=== PATIENT | female | born 1945 | race Caucasian/White ===

== ENCOUNTER 2023-10-09 06:33 | Observation (INO) | payer OTHER ==
[2023-10-09 07:44] LABS: Absolute Lymphocytes (CBC) 3.1 K/uL (0.7-4.9); Hematocrit 40.2 % (36.0-45.0); Lymphocytes % 20.5 % (15.3-44.8); MCV 90.4 fL (80-100); MPV 8.6 fL (7.6-11.3); Platelets 322 thou/uL (152-406); RBC Red Blood Cell Count 4.45 M/uL (3.86-4.86)
[2023-10-09 07:45] LABS: Albumin 2.7 g/dL (3.4-5.0); Bilirubin Total 0.7 mg/dL (0.2-1.0); Protein, Total 6.9 g/dL (6.4-8.2)
[2023-10-09 07:46] LABS: Potassium 3.5 mEq/L (3.5-5.1)
[2023-10-09 07:53] LABS: Specific Gravity 1.029 (1.005-1.030); Urine Bacteria None Seen /HPF (<20); Urine Bilirubin NEGATIVE (Negative); Urine Blood Negative (Negative); Urine Clarity Extremely Turbid (Clear); Urine Color Yellow (Yellow); Urine Glucose 4+ (Over) (Negative); Urine Mucus 3+ /HPF (None Seen); Urine Protein 3+ (Negative); Urine RBC <5 /HPF (None Seen); Urine Urobilinogen Normal (Normal)
--- NOTE | 2023-10-09 08:35 | RAD REPORT ---
EXAM DESCRIPTION: CT - Abdomen Pelvis W Contrast - 10/09/2023 8:06 am CLINICAL HISTORY: recent diverticulitis;Abd pain COMPARISON: No comparisons TECHNIQUE: Thin cut axial CT imaging of the abdomen and pelvis was performed following intravenous a dministration of 100 mL Isovue 300. Multiplanar reformats were generated and reviewed. All CT scans are performed using dose optimization technique as appropriate and may include automated exposure control or mA/KV adjustment according to patient size. FINDINGS: No suspicious findings in the lung bases. The liver demonstrates a hypoattenuating 1.9 cm right lobe lesion posteriorly, not well characterized , but statistically favors a benign entity such as a cyst or hemangioma. No other suspicious findings of the liver. Spleen, adrenal glands, and pancreas show no suspicious findings. Gallbladder was surg ically removed. Symmetric renal function is seen with no hydronephrosis or suspicious renal mass. Bilateral small cor tical hypoattenuating lesions, largest at the left interpolar region measuring 2.5 cm, suggestive of cysts, although not well characterized. Appearance of persistent lobulation. Suture line at the base of the cecum, may relate to partial resection. No dilated bowel loops. Segmen pauline wall thickening and adjacent fat stranding involving the sigmoid colon, centered upon the left la teral wall diverticulum. Other mild colonic diverticulosis. No free air, free fluid or inflammatory s tranding. No hernia, mass or bulky lymphadenopathy. [place] region of soft tissue density along the le ft pelvic sidewall may relate to a residual ovary. Status post hysterectomy. The urinary bladder is d ecompressed limiting evaluation. The inflamed segment with column abuts the dome of the bladder with some obliteration of the intervening fat plane overload or arteries suggest a fistula or adjacent flu id collection. No suspicious bony findings. IMPRESSION: Sequelae of early acute diverticulitis of the proximal sigmoid colon. The inflamed segme nt of the colon abuts the dome of the bladder, please correlate clinically for evidence of cystitis, although the bladder is suboptimally distended. No other evidence of complications. Other incidental, likely benign findings, as above. The findings were communicated to Bj Hernandez on 10/09/2023 at 08:24 hours.
[2023-10-09] MEDS ORDERED: NA CHLORIDE 0.9% 250 ML ONE (09:10)
[2023-10-09] MEDS ORDERED: PIPERACIL/TAZO 3.375 GM VIAL IV ONE (09:10)
--- NOTE | 2023-10-09 09:16 | ER ---
Nurse's Notes [facility] Name: Yuliya Kaplan Age: 78 yrs Sex: Female : 1945 Arrival Date: 10/09/2023 Time: 06:33 Bed 5 Private MD: Diagnosis: Diverticulitis of small intestine without perforation or abscess without bleeding;Failure of outpatient therapy Presentation: 10/09 07:09 Chief complaint: Patient states: Abd. pain with URIBE for 1 week. Ebola Screen: Patient ll1 denies travel to an Ebola-affected area in the 21 days before illness onset. Initial Sepsis Screen: Does the patient meet any 2 criteria? No. Patient's initial sepsis screen is negative. Does the patient have a suspected source of infection? Yes: Acute abdominal pain. Risk Assessment: Do you want to hurt yourself or someone else? Patient reports no desire to harm self or others. 07:09 Acuity: CINDY 3 ll1 07:11 Coronavirus screen: Client denies travel out of the [place] in the last 14 days. At this ll1 time, the client does not indicate any symptoms associated with coronavirus-19. Onset of symptoms was October 03, 2023. 07:11 Method Of Arrival: Ambulatory ll1 Triage Assessment: 07:09 General: Appears uncomfortable, Behavior is calm, cooperative, appropriate for age. ll1 Pain: Complains of pain in abdomen Quality of pain is described as aching, crampy. Neuro: Reports headache. GI: Reports lower abdominal pain, upper abdominal pain, cramping. Historical: - Allergies: 07:12 No Known Allergies; ll1 - PMHx: 07:09 Diabetes - NIDDM; Hypertension; neuropathy; Pneumonia; ll1 - PSHx: 07:12 Appendectomy; Cholecystectomy; partial hysterectomy; ll1 - Immunization history:: Adult Immunizations up to date. - Social history:: Smoking status: Patient denies any tobacco usage or history of. - Family history:: not pertinent. - Hospitalizations: : No recent hospitalization is reported. Screenin:20 [facility] ED Fall Risk Assessment (Adult) History of falling in the last 3 months, ko1 including since admission No falls in past 3 months (0 pts) Confusion or Disorientation No (0 pts) Intoxicated or Sedated No (0 pts) Impaired Gait Yes (1 pt) Mobility Assist Device Used Yes (1 pt) Altered Elimination No (0 pt) Score/Fall Risk Level 0 - 2 = Low Risk Oriented to surroundings, Maintained a safe environment, Educated pt \T\ family on fall prevention, incl call for assistance when getting out of bed, Assessed \T\ reinforced patient's understanding of fall precautions, Provided non-skid footwear, Hourly rounding (assess needs \T\ fall precautionary measures) done, Used ambulatory aids as needed (educated on \T\ assisted with). Abuse screen: Denies threats or abuse. Denies injuries from another. Nutritional screening: No deficits noted. Tuberculosis screening: No symptoms or risk factors identified. Assessment: 08:52 Reassessment: No changes from previously documented assessment. Patient and/or family ll1 updated on plan of care and expected duration. Pain level reassessed. Patient is alert, oriented x 3, equal unlabored respirations, skin warm/dry/pink. 09:28 Pain: Complains of pain in headache. ko1 09:30 General: Appears in no apparent distress. comfortable, Behavior is calm, cooperative, eh3 appropriate for age. Pain: Complains of pain in head and abdomen. Neuro: Level of Consciousness is awake, alert, obeys commands, Oriented to person, place, time, situation. Cardiovascular: Capillary refill < 3 seconds Patient's skin is warm and dry. Respiratory: Airway is patent Trachea Respiratory effort is even, unlabored, Respiratory pattern is regular, symmetrical. GI: Abdomen is round. Derm: Skin is pink, warm \T\ dry. Musculoskeletal: Circulation, motion, and sensation intact. 10:00 Reassessment: Patient appears in no apparent distress at this time. Patient and/or eh3 family updated on plan of care and expected duration. Pain level reassessed. Patient is alert, oriented x 3, equal unlabored respirations, skin warm/dry/pink. 11:00 Reassessment: Patient appears in no apparent distress at this time. Patient and/or eh3 family updated on plan of care and expected duration. Pain level reassessed. Patient is alert, oriented x 3, equal unlabored respirations, skin warm/dry/pink. 18:03 Reassessment: Failed attempt to call report to 2nd floor, nurse did not answer phone. ll1 Vital Signs: 07:11 BP 181 / 84; Pulse 79; Resp 18; Temp 97.6; Pulse Ox 95% ; Weight 92.99 kg; Height 5 ft. ll1 7 in. ; 09:20 BP 168 / 95; Pulse 84; Resp 16; Pulse Ox 98% ; ko1 10:00 BP 162 / 66; Pulse 61; Resp 16; Pulse Ox 98% on R/A; eh3 11:00 BP 151 / 70; Pulse 71; Resp 16; Pulse Ox 98% on R/A; eh3 07:11 Body Mass Index 32.11 (92.99 kg, 170.18 cm) ll1 ED Course: 06:38 Patient arrived in ED. gm2 06:58 Bj Hernandez MD is Attending Physician. rn 07:09 Arm band placed on. ll1 07:10 Triage completed. ll1 07:17 Inserted saline lock: 22 gauge in right wrist, using aseptic technique. Blood collected.kj1 07:35 Flu Sent. kj1 07:35 Initial lab(s) drawn, by me, sent to lab. kj1 08:08 CT Abd/Pelvis - IV Contrast Only In Process Unspecified. EDMS 08:51 Patient placed in an exam room, on a stretcher. ll1 08:54 Pat Cazares, RN is Primary Nurse. ko1 09:12 Dyllan Silva is Hospitalizing Provider. rn 09:28 Patient has correct armband on for positive identification. Bed in low position. Call ko1 light in reach. Side rails up X 1. Pulse ox on. NIBP on. Door closed. Noise minimized. Lights dimmed. Warm blanket given. 10:00 Provided Education on: use of call celeste. Pillow given. eh3 11:00 Diet: Patient given snack. jello, and water, tolerated well. eh3 12:30 No provider procedures requiring assistance completed. Patient admitted, IV remains in ph place. Administered Medications: 09:00 Drug: Piperacillin-Tazobactam IVPB 3.375 grams IVPB once over 60 mins; (mix in NS 100 ko1 mL) Route: IVPB; Infused Over: 60 mins; Site: right wrist; 10:00 Follow up: Response: No adverse reaction; IV Status: Completed infusion; IV Intake: eh3 100ml 09:17 Drug: morphine IVP or IV 2 mg IVP once over 4 mins Route: IVP; Infused Over: 4 mins; ko1 Site: right wrist; 10:00 Follow up: Response: No adverse reaction; Pain is decreased 3 09:17 Drug: Ondansetron IVP 4 mg IVP once; over 2 minutes Route: IVP; Site: right wrist; ko1 10:00 Follow up: Response: No adverse reaction; Nausea is decreased 3 09:30 Drug: NS 0.9% IV 500 ml IV at bolus once Route: IV; Rate: bolus; Site: left wrist; 3 10:30 Follow up: IV Status: Completed infusion; IV Intake: 500ml 3 Medication: 12:30 VIS not applicable for this client. ph Intake: 10:00 IV: 100ml; Total: 100ml. eh3 10:30 IV: 500ml; Total: 600ml. 3 Outcome: 09:15 Decision to Hospitalize by Provider. rn 12:30 Admitted to ER Hold. Please see [facility] for further documentation. ph 12:30 Condition: stable 12:30 Instructed on the need for admit, 19:15 Admitted to Med/surg accompanied by tech, via wheelchair, room 224, Report called to [facility] Sharyn 19:15 Condition: stable 19:15 Instructed on the need for admit, 19:16 Patient left the ED. [facility] Signatures: Dispatcher [employer] EDMS Bj Hernandez MD MD rn Hall, Patricia, RN RN Becca Miner [email or web address] Janet De La Garza RN RN [email or web address] Vielka Newberry RN RN 3 Pat Cazares RN RN ko1 Jessy Avery gm2 Corrections: (The following items were deleted from the chart) 07:12 07:09 Chief complaint: Patient states: Abd. pain with URIBE [place] [address] 08:52 08:40 Patient placed in an exam room, on a stretcher, [place] [address]
--- NOTE | 2023-10-09 09:16 | EDPHYS ---
Physician Documentation [facility] Name: Yuliya Kaplan Age: 78 yrs Sex: Female : 1945 Arrival Date: 10/09/2023 Time: 06:33 Bed 5 Private MD: ED Physician Bj Hernandez HPI: 10/09 07:20 This 78 yrs old Female presents to ER via Ambulatory with complaints of Headache, rn Abdominal Pain. 07:21 The patient presents with abdominal pain in the left lower quadrant. Onset: The rn symptoms/episode began/occurred 2 week(s) ago. The symptoms do not radiate. Associated signs and symptoms: Pertinent positives: constipation, Pertinent negatives: nausea and vomiting, blood in stools, fever, shortness of breath. Modifying factors: The symptoms are alleviated by nothing, the symptoms are aggravated by nothing. Severity of pain: At its worst the pain was mild in the emergency department the pain is unchanged. The patient has experienced a previous episode. The patient has been recently seen by a physician:. . 07:29 Patient and report left lower quadrant abdominal pain associated with rn constipation. They are from out of town and report diagnosis of diverticulitis 2 weeks ago, spent 1 night in the hospital but more for hypertension, sent home with Augmentin. Seen about a week later and diagnosed with a UTI, put on ciprofloxacin. Denies any fever or vomiting. Persistent abdominal pain that never went away. No worsening of symptoms. Has tried laxatives and stool softeners without alleviation of constipation. Historical: - Allergies: 07:12 No Known Allergies; ll1 - PMHx: 07:09 Diabetes - NIDDM; Hypertension; neuropathy; Pneumonia; ll1 - PSHx: 07:12 Appendectomy; Cholecystectomy; partial hysterectomy; ll1 - Immunization history:: Adult Immunizations up to date. - Social history:: Smoking status: Patient denies any tobacco usage or history of. - Family history:: not pertinent. - Hospitalizations: : No recent hospitalization is reported. ROS: 07:29 Constitutional: Negative for fever, chills, and weight loss, Eyes: Negative for injury, rn pain, redness, and discharge, Cardiovascular: Negative for chest pain, palpitations, and edema, Respiratory: Negative for shortness of breath, cough, wheezing, and pleuritic chest pain, Abdomen/GI: Positive for left lower quadrant abdominal pain and constipation MS/Extremity: Negative for injury and deformity, Skin: Negative for injury, rash, and discoloration, Neuro: Positive for headache, negative for focal weakness or numbness Exam: 07:29 Constitutional: This is a well developed, well nourished patient who is awake, alert, rn and in no acute distress. Ambulatory to room without assistance, uses walker Head/Face: Normocephalic, atraumatic. ENT: Dry mucous membranes Cardiovascular: Regular rate and rhythm. No pulse deficits. Respiratory: No increased work of breathing, no retractions or nasal flaring. Abdomen/GI: Soft, left lower quadrant tenderness. No distention. No rebound MS/ Extremity: Pulses equal, no cyanosis. Neuro: Awake and alert, GCS 15 Vital Signs: 07:11 BP 181 / 84; Pulse 79; Resp 18; Temp 97.6; Pulse Ox 95% ; Weight 92.99 kg; Height 5 ft. ll1 7 in. ; 09:20 BP 168 / 95; Pulse 84; Resp 16; Pulse Ox 98% ; ko1 10:00 BP 162 / 66; Pulse 61; Resp 16; Pulse Ox 98% on R/A; eh3 11:00 BP 151 / 70; Pulse 71; Resp 16; Pulse Ox 98% on R/A; eh3 07:11 Body Mass Index 32.11 (92.99 kg, 170.18 cm) ll1 MDM: 06:58 Patient medically screened. rn 09:07 Differential diagnosis: bowel obstruction, diverticulitis, non-specific abd pain, rn Ureterolithiasis, urinary tract infection. Differential diagnosis: Pyelonephritis. Data reviewed: vital signs, nurses notes, lab test result(s). Data reviewed: radiologic studies, CT scan, and as a result, I will admit patient. Consideration of Admission/Observation Patient was admitted/placed on observation. Escalation of care including admission/observation considered. I considered the following discharge prescriptions or medication management in the emergency department Medications were administered in the Emergency Department. See MAR. Care significantly affected by the following chronic conditions: Diabetes, Hypertension. Counseling: I had a detailed discussion with the patient and/or guardian regarding the historical points, exam findings, and any diagnostic results supporting the discharge/admit diagnosis, lab results, radiology results, the need for further work-up and treatment in the hospital. Response to treatment: the patient's symptoms have mildly improved after treatment, and as a result, I will admit patient. ED course: Patient with persistent acute diverticulitis, elevated WBC, stable vitals but failure of outpatient therapy, has now taken ciprofloxacin and Augmentin without resolution of infection and patient feels worse. Will admit to hospitalist service for further care and IV antibiotics.. 09:29 ED course: Administration requested transfer of patient due to hospital capacity and supervisor frame sample and pattern hold situation, patient and offered transfer, they declined, are renting locally and will be difficult for to get to . They understand the hold situation and request for transfer, they politely declined. Will keep patient here for IV antibiotics. 10/09 07:13 Order name: CBC with Diff; Complete Time: 08:24 rn 10/09 07:13 Order name: CMP; Complete Time: 08:24 rn 10/09 07:13 Order name: Lipase; Complete Time: 08:24 rn 10/09 07:14 Order name: Urinalysis w/ reflexes; Complete Time: 08:24 rn 10/09 07:20 Order name: Flu; Complete Time: 08:24 rn 10/09 07:56 Order name: Urine Culture EDMS 10/09 10:37 Order name: Urinalysis w/ reflexes EDMS 10/09 10:37 Order name: Basic Metabolic Panel EDMS 10/09 10:37 Order name: Basic Metabolic Panel EDMS 10/09 10:37 Order name: Basic Metabolic Panel EDMS 10/09 10:37 Order name: Basic Metabolic Panel EDMS 10/09 10:37 Order name: Basic Metabolic Panel EDMS 10/09 10:37 Order name: Basic Metabolic Panel EDMS 10/09 10:37 Order name: Basic Metabolic Panel EDMS 10/09 10:37 Order name: Basic Metabolic Panel EDMS 10/09 10:37 Order name: CBC with Automated Diff EDMS 10/09 10:37 Order name: CBC with Automated Diff EDMS 10/09 10:37 Order name: CBC with Automated Diff EDMS 10/09 10:37 Order name: CBC with Automated Diff EDMS 10/09 10:37 Order name: CBC with Automated Diff EDMS 10/09 10:37 Order name: CBC with Automated Diff EDMS 10/09 10:37 Order name: CBC with Automated Diff EDMS 10/09 10:37 Order name: CBC with Automated Diff EDMS 10/09 10:37 Order name: Lipid Profile EDMS 10/09 10:37 Order name: Lipid Profile EDMS 10/09 10:37 Order name: Magnesium EDMS 10/09 10:37 Order name: Magnesium EDMS 10/09 10:37 Order name: Magnesium EDMS 10/09 10:37 Order name: Magnesium EDMS 10/09 10:37 Order name: Magnesium EDMS 10/09 10:37 Order name: Magnesium EDMS 10/09 10:37 Order name: Magnesium EDMS 10/09 10:37 Order name: Magnesium EDMS 10/09 10:37 Order name: Phosphorus EDMS 10/09 10:37 Order name: Phosphorus EDMS 10/09 10:37 Order name: Phosphorus EDMS 10/09 10:37 Order name: Phosphorus EDMS 10/09 10:37 Order name: Phosphorus EDMS 10/09 10:37 Order name: Phosphorus EDMS 10/09 10:37 Order name: Phosphorus EDMS 10/09 10:37 Order name: Phosphorus EDMS 10/09 11:58 Order name: Glucose, Ancillary Testing; Complete Time: 17:37 EDMS 10/09 18:34 Order name: Glucose, Ancillary Testing EDMS 10/09 07:13 Order name: CT Abd/Pelvis - IV Contrast Only; Complete Time: 08:51 rn 10/09 07:13 Order name: IV Saline Lock; Complete Time: 07:14 rn 10/09 07:13 Order name: Labs collected and sent; Complete Time: 07:14 rn Administered Medications: 09:00 Drug: Piperacillin-Tazobactam IVPB 3.375 grams IVPB once over 60 mins; (mix in NS 100 ko1 mL) Route: IVPB; Infused Over: 60 mins; Site: right wrist; 10:00 Follow up: Response: No adverse reaction; IV Status: Completed infusion; IV Intake: eh3 100ml 09:17 Drug: morphine IVP or IV 2 mg IVP once over 4 mins Route: IVP; Infused Over: 4 mins; ko1 Site: right wrist; 10:00 Follow up: Response: No adverse reaction; Pain is decreased eh3 09:17 Drug: Ondansetron IVP 4 mg IVP once; over 2 minutes Route: IVP; Site: right wrist; ko1 10:00 Follow up: Response: No adverse reaction; Nausea is decreased eh3 09:30 Drug: NS 0.9% IV 500 ml IV at bolus once Route: IV; Rate: bolus; Site: left wrist; [facility] 10:30 Follow up: IV Status: Completed infusion; IV Intake: 500ml 3 Disposition Summary: 10/09/23 09:15 Hospitalization Ordered Notes: Hospitalization Status: Inpatient Admission rn Provider: Dyllan Silva rn Condition: Stable rn Problem: new rn Symptoms: are unchanged rn Bed/Room Type: Standard rn Location: Telemetry/MedSurg (Inpatient)(10/09/23 17:33) em1 Room Assignment: 224(10/09/23 17:33) em1 Diagnosis - Diverticulitis of small intestine without perforation or abscess without bleeding rn - Failure of outpatient therapy rn Forms: - Medication Reconciliation Form rn - SBAR form rn - Leadership Thank You Letter rn Signatures: Dispatcher [employer] EDMS Bj Hernandez MD MD rn Martinez, Eric em1 Eloise Daugherty RN RN [id number] Janet De La Garza RN RN 1 Vielka Newberry RN RN 3 Pat Cazares RN RN ko1 Corrections: (The following items were deleted from the chart) 12:24 09:15 Telemetry/MedSurg (Inpatient) suzie champagne7 12:24 09:15 suzie rollins 17:33 12:24 [facility] ER HOLD [email or web address] em1 17:33 12:24 ERHOLD- [id number] em1
[2023-10-09] MEDS ORDERED: ONDANSETRON 4 MG/2 ML VIAL ONE (09:22)
[2023-10-09] MEDS ORDERED: MORPHINE 2 MG/ML SYR ONE (09:22)
[2023-10-09] MEDS ORDERED: NA CHLORIDE 0.9% 500 ML ONE (09:33)
--- NOTE | 2023-10-09 10:54 | P.HP ---
Certification for Inpatient Patient admitted to: Observation With expected LOS: <2 Midnights Patient will require the following post-hospital care: None Practitioner: I am a practitioner with admitting privileges, knowledge of patient current condition, hospital course, and medical plan of care. Services: Services provided to patient in accordance with Admission requirements found in Title 42 Section 412.3 of the Code of Federal Regulations <Areli Morales - Last Filed: 10/09/23 17:18> Patient History Date of Service: 10/09/23 Reason for admission: acute diverticulitis History of Present Illness: Yuliya Kaplan is a 78-year-old female with past medical history of diabetesNIDDM, hypertension, neuropathy, pneumonia, who presents to the ED with complaints of abdominal pain for the last month. Yuliya reports abdominal pain started September 10, she has taken antibiotics for last 2 weeks with no relief. She was aware of diverticulosis seen on scans done on her back in the past, this is her first inflammatory episode. She does believe she is constipated as well. While in the ED she was treated with Zosyn, Zofran, morphine. Initial vitals BP 181 / 84; Pulse 79; Resp 18; Temp 97.6; Pulse Ox 95%. Laboratory evaluation BUN/creatinine 15/1.54, WBC 15, lipase 24, serum glucose 188. CT abdomen pelvis report "Sequelae of early acute diverticulitis of the proximal sigmoid colon. The inflamed segment of the colon abuts the dome of the bladder, please correlate clinically for evidence of cystitis, although the bladder is suboptimally distended. No other evidence of complications. The urinary bladder is decompressed limiting evaluation. The inflamed segment with column abuts the dome of the bladder with some obliteration of the intervening fat plane overload or arteries suggest a fistula or adjacent fluid collection." Yuliya will be admitted to hospitalist service for further evaluation and treatment of acute diverticulitis. <Areli Morales - Last Filed: 10/09/23 17:18> Date of Service: 10/09/23 <gokul cordova - Last Filed: 10/09/23 18:43> Allergies No Known Allergies Allergy (Uncoded 01/12/18 21:49) Unknown Review of Systems Eyes: Unremarkable ENT: Unremarkable Respiratory: Unremarkable Cardiovascular: Unremarkable Gastrointestinal: Other (left lower quadrant pain) Genitourinary: Dysuria, Frequency Musculoskeletal: Back Pain, Other (hip pain) Integumentary: Unremarkable Neurological: Unremarkable Lymphatics: Unremarkable <Areli Morales - Last Filed: 10/09/23 17:18> Physical Examination - Physical Exam General: Alert, In no apparent distress, Oriented x3 HEENT: Atraumatic, Normocephalic, PERRLA Neck: Supple, 2+ carotid pulse no bruit, JVD not distended Respiratory: Clear to auscultation bilaterally, Normal air movement Cardiovascular: No edema, Normal pulses, Regular rate/rhythm, Normal S1 S2 Capillary refill: <2 Seconds Gastrointestinal: Normal bowel sounds, Soft and benign, Tenderness Musculoskeletal: No clubbing, No swelling, No contractures, No erythema Integumentary: No rashes, No breakdown, No significant lesion Neurological: Normal speech, Normal strength at 5/5 x4 extr, Normal tone - Studies Laboratory Data (last 24 hrs) 10/09/23 10/09/23 07:17 07:17 WBC 15.00 H Hgb 13.2 Hct 40.2 Plt Count 322 Sodium 138 Potassium 3.5 BUN 15 Creatinine 1.50 H Glucose 188 H Total Bilirubin 0.7 AST 11 L ALT 15 Alkaline Phosphatase 87 Lipase 24 Microbiology Data (last 24 hrs): 10/09/23 07:27 Nasopharnyx Influenza Type A Antigen Screen - Final 10/09/23 07:27 Nasopharnyx Influenza Type B Antigen Screen - Final <Areli Morales - Last Filed: 10/09/23 17:18> - Studies Laboratory Data (last 24 hrs) 10/09/23 10/09/23 07:17 07:17 WBC 15.00 H Hgb 13.2 Hct 40.2 Plt Count 322 Sodium 138 Potassium 3.5 BUN 15 Creatinine 1.50 H Glucose 188 H Total Bilirubin 0.7 AST 11 L ALT 15 Alkaline Phosphatase 87 Lipase 24 Microbiology Data (last 24 hrs): 10/09/23 07:27 Nasopharnyx Influenza Type A Antigen Screen - Final 10/09/23 07:27 Nasopharnyx Influenza Type B Antigen Screen - Final <gokul cordova - Last Filed: 10/09/23 18:43> Assessment and Plan - Plan Assessment and plan Acute diverticulitis Abdominal pain Constipation CLD Zosyn every 12 IV fluid Pain management Chronic pain to back and hips Pain management Out of bed PT for ambulation assistance CYNDI BUN/creatinine 15/1.50, GFR 35 Unknown baseline creatinine IV fluid Hypertension HLD Hypothyroid Neuropathy Continue home medication [id number] Accu-Cheks with sliding scale insulin DVT PPx heparin Full code LOS 2 to 3 days Discharge Plan: Home Plan to discharge in: 72 Hours - Advance Directives Does patient have a Living Will: No Does patient have a Durable POA for Healthcare: No Time Spent Managing Pts Care (In Minutes): 55 <Areli Morales - Last Filed: 10/09/23 17:18> - Plan Acute diverticulitis: Plan: Zosyn 3.75 g IV every 8 hrs. Pain management as needed. <gokul cordova - Last Filed: 10/09/23 18:43>
[2023-10-09] MEDS: NA CHLORIDE 0.9% 1,000 ML IV SCH ×2 (11:00→20:56)
[2023-10-09] MEDS: INSULIN REGULAR (HUMAN) 100 UNIT/ML SQ SCH ×3 (11:30→21:00)
[2023-10-09] MEDS ORDERED: MORPHINE 2 MG/ML SYR IV PRN (13:00)
[2023-10-09] MEDS ORDERED: NA CHLORIDE 0.9% 1,000 ML ONE (15:45)
[2023-10-09] MEDS: HEPARIN 5000 UNIT/ML 1 ML VIAL SQ SCH (17:00)
[2023-10-09] MEDS ORDERED: HEPARIN 5000 UNIT/ML 1 ML VIAL ONE (18:37)
[2023-10-09 19:36] VITALS: O2SAT 98
[2023-10-09] MEDS: ROSUVASTATIN 10 MG TAB PO SCH (20:57)
[2023-10-09] MEDS: HYDROCODONE/APAP 5/325 MG TAB PO PRN (20:57)
[2023-10-09] MEDS: PREGABALIN 50 MG CAP PO SCH (20:58)
[2023-10-09] MEDS: VALSARTAN 160 MG TAB PO SCH (20:59)
[2023-10-09] MEDS: PREGABALIN 150 MG CAP PO SCH (20:59)
[2023-10-09] MEDS ORDERED: PIPER TAZO 3.375 GM in NA CHLORIDE 0.9% 100 ML IV SCH (21:00)
[2023-10-09] MEDS: SODIUM BICARB 325 MG TAB PO SCH (22:54)
[2023-10-09] MEDS ORDERED: MELATONIN 5 MG TABLET PO PRN (22:55)
[2023-10-09 23:20] VITALS: BMI 31.0
[2023-10-10] MEDS: HEPARIN 5000 UNIT/ML 1 ML VIAL SQ SCH ×3 (01:03→16:36)
[2023-10-10] MEDS: PIPER TAZO 3.375 GM in NA CHLORIDE 0.9% 100 ML IV SCH ×3 (01:03→16:35)
[2023-10-10] MEDS: LEVOTHYROXINE SOD 0.05 MG TABLET PO SCH (05:54)
[2023-10-10] MEDS: INSULIN REGULAR (HUMAN) 100 UNIT/ML SQ SCH ×4 (07:30→21:00)
[2023-10-10] MEDS: DONEPEZIL HCL 5 MG TAB PO SCH (08:36)
[2023-10-10] MEDS: DULOXETINE 30 MG CAP PO SCH (08:37)
[2023-10-10] MEDS: SODIUM BICARB 325 MG TAB PO SCH ×2 (08:37→21:30)
[2023-10-10] MEDS: VALSARTAN 160 MG TAB PO SCH (08:53)
[2023-10-10] MEDS ORDERED: VALSARTAN 160 MG TAB PO SCH (09:00)
[2023-10-10 10:52] LABS: Hematocrit 39.8 % (36.0-45.0); Lymphocytes % 28.7 % (15.3-44.8); MPV 8.7 fL (7.6-11.3); Platelets 318 thou/uL (152-406); RBC Red Blood Cell Count 4.37 M/uL (3.86-4.86)
[2023-10-10 11:11] LABS: Magnesium 1.9 mg/dL (1.6-2.4); Phosphorus 3.2 mg/dL (2.5-4.9); Potassium 3.4 mEq/L (3.5-5.1)
[2023-10-10] MEDS ORDERED: POTASSIUM CL SA 10 MEQ TAB PO ONE (12:00)
--- NOTE | 2023-10-10 14:46 | P.PN ---
Subjective Date of Service: 10/10/23 Chief Complaint: acute diverticulitis Patient reports mild left quadrant abdominal pain. She reports an episode of diarrhea this morning. Physical Examination - Vital Signs Temperature: 97.0 F Blood Pressure: 157/70 Pulse: 59 Respirations: 16 Pulse Ox (%): 94 Assessment And Plan - Plan Physical Exam General: Alert, In no apparent distress, Oriented x3 Neck: Supple, JVD not distended Respiratory: Clear to auscultation bilaterally, Normal air movement Cardiovascular: No edema, Normal pulses, Regular rate/rhythm, Normal S1 S2 Gastrointestinal: Normal bowel sounds, Soft and benign, left lower quadrant tenderness, no RBT or guarding Integumentary: No rashes, No breakdown. Neurological: Normal speech, no focal motor deficit. Assessment and plan Acute diverticulitis Constipation Continue clear liquid diet IV Zosyn Supportive measures with IV fluid and analgesics as needed. Serial abdominal examination. Chronic back pain Pain management as needed Out of bed PT for ambulation assistance CYNDI BUN/creatinine 15/1.50, GFR 35 Suspect baseline CKD. Continue IV fluid and monitor renal function. Hypertension HLD Hypothyroid Neuropathy Continue home medication [id number] Accu-Cheks with sliding scale insulin DVT PPx: heparin Full code
[2023-10-10] MEDS: NA CHLORIDE 0.9% 1,000 ML IV SCH ×2 (17:00→17:02)
[2023-10-10] MEDS: PREGABALIN 150 MG CAP PO SCH (20:34)
[2023-10-10] MEDS: PREGABALIN 50 MG CAP PO SCH (20:34)
[2023-10-10] MEDS: ROSUVASTATIN 10 MG TAB PO SCH (20:34)
[2023-10-10] MEDS: HYDRALAZINE HCL 20 MG/ML VIAL IV PRN (20:35)
[2023-10-10] MEDS: HYDROCODONE/APAP 5/325 MG TAB PO PRN (22:41)
[2023-10-11] MEDS: PIPER TAZO 3.375 GM in NA CHLORIDE 0.9% 100 ML IV SCH ×2 (00:55→08:46)
[2023-10-11] MEDS: HEPARIN 5000 UNIT/ML 1 ML VIAL SQ SCH ×2 (00:56→08:24)
[2023-10-11] MEDS: NA CHLORIDE 0.9% 1,000 ML IV SCH ×2 (03:00→11:53)
[2023-10-11 03:54] LABS: Absolute Lymphocytes (CBC) 2.9 K/uL (0.7-4.9); Hematocrit 35.3 % (36.0-45.0); Lymphocytes % 31.9 % (15.3-44.8); MCV 91.7 fL (80-100); MPV 8.9 fL (7.6-11.3); Platelets 281 thou/uL (152-406); RBC Red Blood Cell Count 3.85 M/uL (3.86-4.86)
[2023-10-11 04:14] LABS: Magnesium 1.9 mg/dL (1.6-2.4); Phosphorus 2.5 mg/dL (2.5-4.9); Potassium 3.3 mEq/L (3.5-5.1)
[2023-10-11] MEDS ORDERED: POTASS/SODIUM PHOSPHATE 1 PKT POWD.PACK PO SCH (05:00)
[2023-10-11] MEDS: LEVOTHYROXINE SOD 0.05 MG TABLET PO SCH (05:38)
[2023-10-11] MEDS: HYDRALAZINE HCL 20 MG/ML VIAL IV PRN (06:38)
[2023-10-11 06:40] VITALS: TEMP 98.5
[2023-10-11] MEDS: INSULIN REGULAR (HUMAN) 100 UNIT/ML SQ SCH ×2 (07:30→11:30)
[2023-10-11] MEDS: DONEPEZIL HCL 5 MG TAB PO SCH (08:22)
[2023-10-11] MEDS: DULOXETINE 30 MG CAP PO SCH (08:22)
[2023-10-11] MEDS: VALSARTAN 160 MG TAB PO SCH (08:23)
[2023-10-11] MEDS: HYDROCODONE/APAP 5/325 MG TAB PO PRN (08:23)
[2023-10-11] MEDS: POTASS/SODIUM PHOSPHATE 1 PKT POWD.PACK PO SCH ×3 (08:26→11:53)
[2023-10-11] MEDS: SODIUM BICARB 325 MG TAB PO SCH (08:46)
[2023-10-11] MEDS ORDERED: POTASSIUM CL SA 10 MEQ TAB PO ONE (09:00)
[2023-10-11] MEDS ORDERED: HYDRALAZINE HCL 10 MG TABLET PO SCH (09:00)
[2023-10-11] MEDS ORDERED: ACETAMINOPHEN 500 MG TAB PO ONE (09:04)
[2023-10-11] MEDS ORDERED: HYDROMORPHONE HCL 0.5 MG/0.5 ML INJ IV PRN (12:37)
[2023-10-11] MEDS ORDERED: HYDROMORPHONE HCL 0.5 MG/0.5 ML INJ IV ONE ×2 (13:00→14:06)
[2023-10-11] MEDS ORDERED: metroNIDAZOLE 500 MG TABLET PO SCH (14:00)
--- NOTE | 2023-10-11 14:50 | P.DS ---
Admission Date: 10/09/23 Discharge Date: 10/11/23 Disposition: ROUTINE DISCHARGE Discharge Condition: GOOD Reason for Admission: acute diverticulitis Brief History of Present Illness: Diagnosis Acute diverticulitis Constipation Hospital Course: Yuliya is a pleasant 8-year-old female with a past medical history significant for diabetesNIDDM, hypertension, neuropathy, pneumonia who was admitted to the [facility] on 10/09/2020 for diverticulitis. Yuliya presented to the ED complaining of abdominal pain that had started September 10, she had taken antibiotics for the last 2 weeks prior to arrival with no relief. CT chest abdomen pelvis revealed acute diverticulitis and Yuliya was started on Zosyn and Flagyl IV antibiotics. She has tolerated p.o. diet from clear liquid to full liquid and will advance at home. She has experienced some diarrhea from the antibiotic. She is on room air, hemodynamically stable, urinating well, abdominal pain has reduced, and ready for discharge. On 10/11/2020, Yuliya was seen on morning rounds and deemed medically stable for discharge. Yuliya was discharged with instructions to schedule follow-up appointments with GI for colonoscopy in 2 months and PCP in 1 week better blood pressure control. Yuliya was provided prescriptions for Flagyl and ciprofloxacin. The patient and family members were given the opportunity to ask questions and reported no further questions. Furthermore, all questions were answered to the best of my ability. A copy of this discharge summary will be sent to the above providers to facilitate continuity of care. Today, I personally spent 55 minutes with Yuliya, of which greater than 50% of the time was spent in patient education, counseling, and coordination of care as described above. Vital Signs/Physical Exam: Temp Pulse Resp BP Pulse Ox 98.5 F 62 16 178/75 H 96 10/11/23 06:30 10/11/23 08:23 10/11/23 14:15 10/11/23 08:23 10/11/23 14:15 Laboratory Data at Discharge: WBC 9.00 thou/uL (4.3-10.9) 10/11/23 02:37 Hgb 11.9 g/dL (12.0-15.0) L D 10/11/23 02:37 Hct 35.3 % (36.0-45.0) L 10/11/23 02:37 Plt Count 281 thou/uL (152-406) 10/11/23 02:37 Sodium 143 mEq/L (136-145) 10/11/23 02:37 Potassium 3.3 mEq/L (3.5-5.1) L 10/11/23 02:37 BUN 11 mg/dL (7-18) 10/11/23 02:37 Creatinine 1.32 mg/dL (0.55-1.02) H 10/11/23 02:37 Glucose 137 mg/dL (74-106) H 10/11/23 02:37 Phosphorus 2.5 mg/dL (2.5-4.9) 10/11/23 02:37 Magnesium 1.9 mg/dL (1.6-2.4) 10/11/23 02:37 Total Bilirubin 0.7 mg/dL (0.2-1.0) 10/09/23 07:17 AST 11 U/L (15-37) L 10/09/23 07:17 ALT 15 U/L (13-56) 10/09/23 07:17 Alkaline Phosphatase 87 U/L (45-117) 10/09/23 07:17 Triglycerides 288 mg/dL (<150) H 10/10/23 10:05 Cholesterol 121 mg/dL (<200) 10/10/23 10:05 HDL Cholesterol 45 mg/dL (40-60) 10/10/23 10:05 Cholesterol/HDL Ratio 2.69 10/10/23 10:05 Lipase 24 U/L (13-75) 10/09/23 07:17 Home Medications: Dapagliflozin Propanediol [Farxiga] 1 tab PO DAILY 10/09/23 Donepezil HCl 10 mg PO DAILY 10/09/23 Duloxetine HCl 60 mg PO DAILY 10/09/23 Hydralazine [Apresoline*] 10 mg PO DAILY 10/09/23 Hydrocodone/Acetaminophen [Hydrocodone-Acetamin 10-325 mg] 1 each PO BEDTIME 10/09/23 Irbesartan 300 mg PO DAILY 10/09/23 Levothyroxine [Synthroid*] 50 mcg PO [id number] 10/09/23 Pregabalin [Lyrica] 200 mg PO BEDTIME 10/09/23 Rosuvastatin Calcium 20 mg PO BEDTIME 11/30/23 Sodium Bicarbonate 3 tab PO BID 10/09/23 Ciprofloxacin HCl [Cipro 500 MG Tablet] 500 mg PO BID 7 Days #14 tab 10/11/23 metroNIDAZOLE [Flagyl*] 500 mg PO TID 7 Days #21 tab 10/11/23 New Medications: Ciprofloxacin HCl [Cipro 500 MG Tablet] 500 mg PO BID 7 Days #14 tab metroNIDAZOLE [Flagyl*] 500 mg PO TID 7 Days #21 tab Physician Discharge Instructions: Physical Exam General: Alert, In no apparent distress, Oriented x3 Neck: Supple, JVD not distended Respiratory: Clear to auscultation bilaterally, Normal air movement Cardiovascular: No edema, Normal pulses, Regular rate/rhythm, Normal S1 S2 Gastrointestinal: Normal bowel sounds, Soft and benign, left lower quadrant tenderness, no RBT or guarding Integumentary: No rashes, No breakdown. Neurological: Normal speech, no focal motor deficit. 1. Follow-up with PCP in 1 week for medication management, and blood pressure control 2. Follow-up with GI in 2 months for colonoscopy 3. Continue diabetic diet 4. Fall precautions while ambulating New medications ciprofloxacin 500 mg taken twice a day for 7 days Flagyl 500 mg taken 3 times a day for 7 days Diet: ADA Activity: Fall precautions Followup: NONE,NONE [Primary Care Provider] - 1-2 Weeks
[2023-10-11 15:33] VITALS: BP 135/63
[2023-10-11] MEDS ORDERED: CIPROFLOXACIN HCL 500 MG TAB PO SCH (21:00)
== END 2023-10-11 16:21 | disposition home or self-care (01) ==
LOC: ER 06:33 → ERHOLD 11:52 → 2ND 18:22
PROVIDERS: ADMIT Internal Medicine; ATTEND Internal Medicine
DX: K57.32 Diverticulitis of large intestine without perforation or abscess without bleeding (principal); K59.00 Constipation, unspecified; E11.9 Type 2 diabetes mellitus without complications; I10 Essential (primary) hypertension; G62.9 Polyneuropathy, unspecified; G89.29 Other chronic pain; M54.9 Dorsalgia, unspecified; M25.552 Pain in left hip; M25.551 Pain in right hip; N17.9 Acute kidney failure, unspecified; E78.5 Hyperlipidemia, unspecified; E03.9 Hypothyroidism, unspecified
CPT/HCPCS: 96365; 87088; 85025 ×3; 81001; 87086; 80048 ×2; 36415 ×2; 83735 ×2; 84100 ×2; 80061; 82947 ×8; 83690; 80053; 87804 ×2; 74177; 96375; 99285; Q9967; J1644 ×6; J0360 ×2; J2543 ×7; J2270; J1170; J2405; J7050; J7040; J7030 ×4; G0378 ×5

== ENCOUNTER 2023-12-14 13:16 | Inpatient (IN) | payer OTHER ==
[2023-12-14 14:38] LABS: Absolute Lymphocytes (CBC) 3.6 K/uL (0.7-4.9); Hematocrit 41.7 % (36.0-45.0); Lymphocytes % 16.6 % (15.3-44.8); MCV 91.6 fL (80-100); MPV 9.2 fL (7.6-11.3); Platelets 236 thou/uL (152-406); RBC Red Blood Cell Count 4.56 M/uL (3.86-4.86)
[2023-12-14 14:54] LABS: Bilirubin Total 1.1 mg/dL (0.2-1.0); Potassium 3.3 mEq/L (3.5-5.1)
--- NOTE | 2023-12-14 15:18 | RAD REPORT ---
EXAM DESCRIPTION: CT - Abdomen Pelvis Wo Contrast - 12/14/2023 2:53 pm CLINICAL HISTORY: Abdominal pain COMPARISON: September 2023 TECHNIQUE: Computed axial tomography of the abdomen and pelvis was obtained. IV and oral contrast we re not requested. All CT scans are performed using dose optimization technique as appropriate and may include automated exposure control or mA/KV adjustment according to patient size. FINDINGS: The evaluation of solid organs, vessels and bowel is limited secondary to the lack of con trast administration. Cholecystectomy. Duodenal diverticulum The liver, spleen, pancreas, and adrenals appear grossly normal. Small simple and hemorrhagic renal cysts Postsurgical changes lumbar spine. Hysterectomy. Surgical changes region of the cecum. Diverticula stem from the colon. Mild to moderate stranding adjacent to the sigmoid colon. No free ai r. No abscess IMPRESSION: Mild to moderate sigmoid diverticulitis
--- NOTE | 2023-12-14 15:26 | ER ---
Nurse's Notes [facility] Name: Yuliya Kaplan Age: 78 yrs Sex: Female : 1945 Arrival Date: 12/14/2023 Time: 13:16 Bed 20 Private MD: Diagnosis: Diverticulitis of large intestine without perforation or abscess without bleeding;Chronic renal insufficiency Presentation: 12/14 13:30 Chief complaint: Generalized weakness x 2 days, left lower abdomal pain today. Reports hb home BGL readings have been trending higher than normal, from 196-315. Coronavirus screen: At this time, the client does not indicate any symptoms associated with coronavirus-19. Ebola Screen: No symptoms or risks identified at this time. Initial Sepsis Screen: Does the patient meet any 2 criteria? No. Patient's initial sepsis screen is negative. Does the patient have a suspected source of infection? No. Patient's initial sepsis screen is negative. Risk Assessment: Do you want to hurt yourself or someone else? Patient reports no desire to harm self or others. Onset of symptoms was December 13, 2023. 13:30 Method Of Arrival: Wheelchair hb 13:30 Acuity: CINDY 3 hb Triage Assessment: 17:08 General: Appears uncomfortable, Behavior is calm, cooperative. Pain: Complains of pain tl4 in abdomen. EENT: No deficits noted. No signs and/or symptoms were reported regarding the EENT system. Neuro: No deficits noted. Cardiovascular: No deficits noted. Respiratory: No deficits noted. GI: Reports lower abdominal pain, upper abdominal pain, intolerance of fluids, intolerance of food, nausea. : No deficits noted. No signs and/or symptoms were reported regarding the genitourinary system. Derm: No deficits noted. No signs and/or symptoms reported regarding the dermatologic system. Historical: - Allergies: 13:34 No Known Allergies; hb - Home Meds: 13:40 rosuvastatin 20 mg oral tablet daily [Active]; pregabalin 200 mg Oral capsule nightly hb [Active]; Farxiga 10 mg oral tablet daily [Active]; donepezil 10 mg oral tablet daily [Active]; sodium bicarbonate 650 mg Oral tablet 2 times per day [Active]; duloxetine 60 mg nightly, 30 mg every morning oral capsule,delayed release (e.c.) [Active]; levothyroxine 50 mcg capsule daily [Active]; irbesartan 300 mg oral tablet daily [Active]; hydrocodone-acetaminophen 10-325 mg Oral tablet nightly [Active]; torsemide 20 mg oral tablet daily [Active]; Vitamin D Oral 4000 unit nightly [Active]; Iron CR Oral 65 mg daily [Active]; aspirin 81 mg Oral tablet,chewable nightly [Active]; amlodipine 5 mg tablet nightly [Active]; melatonin 5 mg Oral tablet nightly [Active]; Vitamin B-12 1,000 mcg Oral tablet daily [Active]; [employer] Plus [Active]; - PMHx: 13:34 Diabetes - NIDDM; Hypertension; neuropathy; Pneumonia; hb - PSHx: 13:34 Appendectomy; Cholecystectomy; partial hysterectomy; hb - Immunization history:: Client reports receiving the 2nd dose of the Covid vaccine, . - Social history:: Smoking status: Patient denies any tobacco usage or history of. Screenin:11 [facility] ED Fall Risk Assessment (Adult) History of falling in the last 3 months, tl4 including since admission No falls in past 3 months (0 pts) Confusion or Disorientation No (0 pts) Intoxicated or Sedated No (0 pts) Impaired Gait No (0 pts) Mobility Assist Device Used No (0 pt) Altered Elimination No (0 pt) Score/Fall Risk Level 0 - 2 = Low Risk Oriented to surroundings, Maintained a safe environment, Educated pt \T\ family on fall prevention, incl call for assistance when getting out of bed, Assessed \T\ reinforced patient's understanding of fall precautions, Provided non-skid footwear, Hourly rounding (assess needs \T\ fall precautionary measures) done, Used ambulatory aids as needed (educated on \T\ assisted with), Used gait belt as appropriate. Abuse screen: Denies threats or abuse. Denies injuries from another. Nutritional screening: No deficits noted. Tuberculosis screening: No symptoms or risk factors identified. Assessment: 17:09 Reassessment: No changes from previously documented assessment. Patient and/or family tl4 updated on plan of care and expected duration. Pain level reassessed. Patient is alert, oriented x 3, equal unlabored respirations, skin warm/dry/pink. 17:14 GI: Bowel sounds present X 4 quads. Abd is soft Abdomen is tender to palpation X 4 tl4 quads. 18:18 Reassessment: No changes from previously documented assessment. Patient and/or family tl4 updated on plan of care and expected duration. Pain level reassessed. Patient is alert, oriented x 3, equal unlabored respirations, skin warm/dry/pink. 18:28 Reassessment: Patient appears in no apparent distress at this time. REPORT RECEIVED db FROM KARLEE YANG. Vital Signs: 13:30 BP 116 / 58; Pulse 79; Resp 16; Temp 98.5(O); Pulse Ox 98% on R/A; Weight 95.25 kg; hb Height 5 ft. 7 in. ; Pain 2/10; 17:11 BP 117 / 59; Pulse 66; Resp 18; Pulse Ox 96% on R/A; tl4 17:48 BP 113 / 62; Pulse 64; Resp 17; Pulse Ox 95% ; tl4 18:21 BP 109 / 54; Pulse 76; Resp 18; Pulse Ox 96% on R/A; db 19:00 BP 107 / 41; Pulse 54; Resp 18; Pulse Ox 96% on R/A; km8 19:30 BP 94 / 41; Pulse 53; Resp 18; Pulse Ox 96% on R/A; km8 13:30 Body Mass Index 32.89 (95.25 kg, 170.18 cm) hb 13:30 Pain Scale: Adult hb ED Course: 13:19 Patient arrived in ED. im 13:34 Triage completed. hb 13:34 Arm band placed on. hb 13:41 Chelo Torres, DHRUV-C is PHCP. snw 13:41 Ward Salgado MD is Attending Physician. snw 14:28 CBC with Diff Sent. bc6 14:28 CMP Sent. bc6 14:28 Lipase Sent. bc6 14:28 Missed attempt(s): 22 gauge in right antecubital area. bc6 14:55 CT Abd/Pelvis - Without Contrast In Process Unspecified. EDMS 15:00 Brandt Martin is Primary Nurse. tl4 15:24 Umiar Hernandez MD is Hospitalizing Provider. snw 17:08 Add On-Lab Sent. tl4 17:08 Urinalysis w/ reflexes Sent. tl4 17:08 Blood Culture Adult (2) Sent. tl4 17:12 Patient has correct armband on for positive identification. Placed in gown. Bed in low tl4 position. Call light in reach. Side rails up X2. Adult w/ patient. Provided Education on: ed process. Client placed on continuous cardiac and pulse oximetry monitoring. NIBP monitoring applied. Door closed. Noise minimized. Moved to private room. Warm blanket given. 17:13 Diet: clear liquid diet tray given to patient. tl4 17:13 No provider procedures requiring assistance completed. tl4 18:09 Inserted saline lock: 20 gauge in left antecubital area, using aseptic technique. ss ,using aseptic technique. VIA US GUIDED Blood collected. 18:21 Report given to KARLEE Farah. tl4 19:40 Patient admitted, IV remains in place. km8 Administered Medications: 15:41 CANCELLED (Other Intervention Used): [id number] mg 200 ml IVPB once over 60 mins la1 16:59 Drug: Ciprofloxacin IVPB 400 mg 200 ml IVPB once over 60 mins Volume: 200 ml; Route: tl4 IVPB; Infused Over: 60 mins; Site: left antecubital; 19:00 Follow up: IV Status: Completed infusion km8 16:59 Drug: metroNIDAZOLE IVPB 500 mg 100 ml IVPB at 200 ml/hr once over 30 mins Volume: 100 tl4 ml; Route: IVPB; Rate: 200 ml/hr; Infused Over: 30 mins; Site: left antecubital; 17:49 Follow up: Response: No adverse reaction; IV Status: Completed infusion; IV Intake: tl4 100ml 16:59 Drug: NS 0.9% IV 1000 ml IV at 75 ml/hr continuous Route: IV; Rate: 75 ml/hr; Site: tl4 left antecubital; Delivery: Primary tubing; 19:40 Follow up: IV Status: Infusion continued upon admission km8 Medication: 17:11 VIS not applicable for this client. tl4 Intake: 17:49 IV: 100ml; Total: 100ml. tl4 Outcome: 15:25 Decision to Hospitalize by Provider. snw 19:40 Condition: stable km8 19:40 Admitted to ER Hold. [facility]. km8 19:40 Instructed on the need for admit, Demonstrated understanding of instructions, 02 05:49 Patient left the ED. rv Signatures: Dispatcher [employer] Chelo Zambrano FNP-C AURICULOTHERAPIST-Csnw Clementina Caballero, RN RN ss Amy Torres, RN RN hb Octavio Caban, RN RN rv Sofi Watts, RN RN db Laura Hoang [facility] Soo Mccormick Katie, RN RN km8 Veronica, Brandt 4 Tawanda Welsh AURICULOTHERAPIST-Cla1
--- NOTE | 2023-12-14 15:26 | EDPHYS ---
Physician Documentation [facility] Name: Yuliya Kaplan Age: 78 yrs Sex: Female : 1945 Arrival Date: 12/14/2023 Time: 13:16 Bed 20 Private MD: ED Physician Ward Salgado HPI: 12/14 16:22 This 78 yrs old Female presents to ER via Wheelchair with complaints of Abdominal Pain, snw General Weakness. 16:22 The patient presents with abdominal pain in the left lower quadrant. Associated signs snw and symptoms: Pertinent positives: nausea, Pertinent negatives: fever. The symptoms are described as achy, crampy. The patient has experienced a previous episode, but today's symptoms are worse. It is unknown whether or not the patient has recently seen a physician. Historical: - Allergies: 13:34 No Known Allergies; hb - Home Meds: 13:40 rosuvastatin 20 mg oral tablet daily [Active]; pregabalin 200 mg Oral capsule nightly hb [Active]; Farxiga 10 mg oral tablet daily [Active]; donepezil 10 mg oral tablet daily [Active]; sodium bicarbonate 650 mg Oral tablet 2 times per day [Active]; duloxetine 60 mg nightly, 30 mg every morning oral capsule,delayed release (e.c.) [Active]; levothyroxine 50 mcg capsule daily [Active]; irbesartan 300 mg oral tablet daily [Active]; hydrocodone-acetaminophen 10-325 mg Oral tablet nightly [Active]; torsemide 20 mg oral tablet daily [Active]; Vitamin D Oral 4000 unit nightly [Active]; Iron CR Oral 65 mg daily [Active]; aspirin 81 mg Oral tablet,chewable nightly [Active]; amlodipine 5 mg tablet nightly [Active]; melatonin 5 mg Oral tablet nightly [Active]; Vitamin B-12 1,000 mcg Oral tablet daily [Active]; [employer] Plus [Active]; - PMHx: 13:34 Diabetes - NIDDM; Hypertension; neuropathy; Pneumonia; hb - PSHx: 13:34 Appendectomy; Cholecystectomy; partial hysterectomy; hb - Immunization history:: Client reports receiving the 2nd dose of the Covid vaccine, . - Social history:: Smoking status: Patient denies any tobacco usage or history of. ROS: 16:21 Constitutional: Negative for fever, chills, and weight loss, Eyes: Negative for injury, snw pain, redness, and discharge, ENT: Negative for injury, pain, and discharge, Neck: Negative for injury, pain, and swelling, Cardiovascular: Negative for chest pain, palpitations, and edema, Respiratory: Negative for shortness of breath, cough, wheezing, and pleuritic chest pain, Back: Negative for injury and pain, : Negative for injury, bleeding, discharge, and swelling, Skin: Negative for injury, rash, and discoloration, Neuro: Negative for headache, weakness, numbness, tingling, and seizure, Psych: Negative for depression, anxiety, suicide ideation, homicidal ideation, and hallucinations, 16:21 Abdomen/GI: Positive for abdominal pain, nausea, abdominal cramps, of the left lower quadrant, 16:21 MS/extremity: Positive for paresthesias, of the right leg and left leg, Exam: 16:21 Constitutional: This is a well developed, well nourished patient who is awake, alert, snw and in no acute distress. Head/Face: Normocephalic, atraumatic. Eyes: Pupils equal round and reactive to light, extra-ocular motions intact. Lids and lashes normal. Conjunctiva and sclera are non-icteric and not injected. Cornea within normal limits. Periorbital areas with no swelling, redness, or edema. ENT: Nares patent. No nasal discharge, no septal abnormalities noted. Tympanic membranes are normal and external auditory canals are clear. Oropharynx with no redness, swelling, or masses, exudates, or evidence of obstruction, uvula midline. Mucous membranes moist. Neck: Trachea midline, no thyromegaly or masses palpated, and no cervical lymphadenopathy. Supple, full range of motion without nuchal rigidity, or vertebral point tenderness. No Meningismus. Chest/axilla: Normal chest wall appearance and motion. Nontender with no deformity. No lesions are appreciated. Cardiovascular: Regular rate and rhythm with a normal S1 and S2. No gallops, murmurs, or rubs. Normal PMI, no JVD. No pulse deficits. Respiratory: Lungs have equal breath sounds bilaterally, clear to auscultation and percussion. No rales, rhonchi or wheezes noted. No increased work of breathing, no retractions or nasal flaring. Back: No spinal tenderness. No costovertebral tenderness. Full range of motion. Skin: Warm, dry with normal turgor. Normal color with no rashes, no lesions, and no evidence of cellulitis. MS/ Extremity: Pulses equal, no cyanosis. Neurovascular intact. Full, normal range of motion. Neuro: Awake and alert, GCS 15, oriented to person, place, time, and situation. Cranial nerves II-XII grossly intact. Motor strength 5/5 in all extremities. Sensory grossly intact. Cerebellar exam normal. Normal gait. Psych: Awake, alert, with orientation to person, place and time. Behavior, mood, and affect are within normal limits. 16:21 Abdomen/GI: Inspection: abdomen appears normal, obese Bowel sounds: normal, Palpation: mild abdominal tenderness, in the left lower quadrant, Vital Signs: 13:30 BP 116 / 58; Pulse 79; Resp 16; Temp 98.5(O); Pulse Ox 98% on R/A; Weight 95.25 kg; hb Height 5 ft. 7 in. ; Pain 2/10; 17:11 BP 117 / 59; Pulse 66; Resp 18; Pulse Ox 96% on R/A; tl4 17:48 BP 113 / 62; Pulse 64; Resp 17; Pulse Ox 95% ; tl4 18:21 BP 109 / 54; Pulse 76; Resp 18; Pulse Ox 96% on R/A; db 19:00 BP 107 / 41; Pulse 54; Resp 18; Pulse Ox 96% on R/A; km8 19:30 BP 94 / 41; Pulse 53; Resp 18; Pulse Ox 96% on R/A; km8 13:30 Body Mass Index 32.89 (95.25 kg, 170.18 cm) hb 13:30 Pain Scale: Adult hb MDM: 14:28 Patient medically screened. snw 15:26 Differential diagnosis: bowel obstruction, diverticulitis, Pyelonephritis, urinary snw tract infection. Data reviewed: vital signs, nurses notes. Consideration of Admission/Observation Patient was admitted/placed on observation. Escalation of care including admission/observation considered. Management of patient was discussed with the following: Hospitalist: Discussed with Tawanda/Dr. Hernandez. I considered the following discharge prescriptions or medication management in the emergency department Medications were administered in the Emergency Department. See MAR. Historians other than the Patient: Spouse/Significant Other: . Counseling: I had a detailed discussion with the patient and/or guardian regarding the historical points, exam findings, and any diagnostic results supporting the discharge/admit diagnosis, lab results, radiology results, the need for further work-up and treatment in the hospital. 16:18 Response to treatment: the patient's symptoms have mildly improved after treatment. snw 12/14 13:41 Order name: CBC with Diff; Complete Time: 17:56 snw 12/14 13:41 Order name: CMP; Complete Time: 15:38 snw 12/14 13:41 Order name: Lipase; Complete Time: 15:38 snw 12/14 13:41 Order name: Urinalysis w/ reflexes; Complete Time: 17:29 snw 12/14 13:41 Order name: Blood Culture Adult (2) snw 12/14 15:11 Order name: Add On-Lab snw 12/14 15:30 Order name: Magnesium; Complete Time: 15:38 EDMS 12/14 17:46 Order name: Manual Differential; Complete Time: 17:56 EDMS 12/14 20:04 Order name: Glucose, Ancillary Testing EDMS 12/14 20:04 Order name: Glucose, Ancillary Testing EDMS 12/15 04:35 Order name: CBC with Automated Diff EDMS 12/15 04:38 Order name: Comprehensive Metabolic Panel EDMS 12/14 14:28 Order name: CT Abd/Pelvis - Without Contrast; Complete Time: 15:20 snw 12/14 13:41 Order name: IV Saline Lock; Complete Time: 16:43 snw 12/14 13:41 Order name: Labs collected and sent; Complete Time: 14:28 snw Administered Medications: 15:41 CANCELLED (Other Intervention Used): [id number] mg 200 ml IVPB once over 60 mins la1 16:59 Drug: Ciprofloxacin IVPB 400 mg 200 ml IVPB once over 60 mins Volume: 200 ml; Route: tl4 IVPB; Infused Over: 60 mins; Site: left antecubital; 19:00 Follow up: IV Status: Completed infusion km8 16:59 Drug: metroNIDAZOLE IVPB 500 mg 100 ml IVPB at 200 ml/hr once over 30 mins Volume: 100 tl4 ml; Route: IVPB; Rate: 200 ml/hr; Infused Over: 30 mins; Site: left antecubital; 17:49 Follow up: Response: No adverse reaction; IV Status: Completed infusion; IV Intake: tl4 100ml 16:59 Drug: NS 0.9% IV 1000 ml IV at 75 ml/hr continuous Route: IV; Rate: 75 ml/hr; Site: tl4 left antecubital; Delivery: Primary tubing; 19:40 Follow up: IV Status: Infusion continued upon admission km8 Disposition Summary: 12/14/23 15:25 Hospitalization Ordered Notes: Hospitalization Status: Inpatient Admission snw Provider: Umair Hernandez snshiraz Condition: Stable snw Problem: an acute exacerbation snw Symptoms: have worsened snw Bed/Room Type: Standard snw Location: Telemetry/MedSurg (Inpatient)(12/15/23 04:25) cg Room Assignment: [facility](12/15/23 04:25) Diagnosis - Diverticulitis of large intestine without perforation or abscess without bleeding snw - Chronic renal insufficiency snw Forms: - Medication Reconciliation Form snw - SBAR form snw - Leadership Thank You Letter snw Signatures: Dispatcher [employer] EDCA Chelo Torres FNP-C [employer]ATION [employer]S INSTRUCTOR-Csnw Tawanda Welsh FNP-C [employer]OMATION AND CONTROLS INSTRUCTOR-Cla1 Carmen Contreras RN RN Amy Torres, KARELE RN Brandt Martin 4 Eleanor Louis RN km8 Corrections: (The following items were deleted from the chart) 14:35 13:42 Abdomen Pelvis W Con+CT.RAD.BRZ ordered. EDCA EDMS 15:28 15:26 Special discussion: Based on the history and exam findings, there is no snw indication for further emergent testing or inpatient evaluation. snw 15:41 15:26 Ciprofloxacin IVPB 400 mg 200 ml IVPB once over 60 mins ordered. snw la1 19:00 15:25 Telemetry/MedSurg (Inpatient) snw cg 19:00 15:25 snw cg 12/15 04:12/14 19:00 [facility] ER HOLD cg cg 12/15 03:12/14 19:00 ERHOLD- cg cg
[2023-12-14 15:34] LABS: Magnesium 1.9 mg/dL (1.6-2.4)
[2023-12-14] MEDS ORDERED: CIPROFLOXACIN 400mg IV 400 MG/200 ML BAG IV ONE ×2 (15:57→20:58)
[2023-12-14] MEDS ORDERED: METRONIDAZOLE 500mg IVPB 500 MG/100 ML BAG IV ONE (15:58)
--- NOTE | 2023-12-14 16:15 | P.HP ---
Certification for Inpatient Patient admitted to: Inpatient With expected LOS: >2 Midnights Patient will require the following post-hospital care: None Practitioner: I am a practitioner with admitting privileges, knowledge of patient current condition, hospital course, and medical plan of care. Services: Services provided to patient in accordance with Admission requirements found in Title 42 Section 412.3 of the Code of Federal Regulations Patient History Date of Service: 12/14/23 Reason for admission: Acute diverticulitis History of Present Illness: 78-year-old female with history of hypertension, hyperlipidemia, CKD, hypothyroidism presents emergency department 1 day of left lower quadrant abdominal pain. She denies nausea/vomiting or diarrhea. She was admitted to our facility on 10/09/2023 and discharged on 10/11/2023 for diverticulitis. That was her second episode in the last 4 months at that time, she was scheduled to follow-up with GI for colonoscopy after 2 months but began having pain today prior to the 2 months being up. She was evaluated in the emergency department her labs are significant for leukocytosis, CYNDI. CT shows mild to moderate sigmoid diverticulitis. ED provider wishes to admit for further evaluation management acute diverticulitis. Allergies No Known Allergies Allergy (Unverified 10/09/23 20:32) Home Medications: Dapagliflozin Propanediol [Farxiga] 1 tab PO DAILY 10/09/23 Donepezil HCl 10 mg PO DAILY 10/09/23 Duloxetine HCl 60 mg PO DAILY 10/09/23 Hydralazine [Apresoline*] 10 mg PO DAILY 10/09/23 Hydrocodone/Acetaminophen [Hydrocodone-Acetamin 10-325 mg] 1 each PO BEDTIME 10/09/23 Irbesartan 300 mg PO DAILY 10/09/23 Levothyroxine [Synthroid*] 50 mcg PO [id number] 10/09/23 Pregabalin [Lyrica] 200 mg PO BEDTIME 10/09/23 Rosuvastatin Calcium 20 mg PO BEDTIME 10/09/23 Sodium Bicarbonate 3 tab PO BID 10/09/23 Ciprofloxacin HCl [Cipro 500 MG Tablet] 500 mg PO BID 7 Days #14 tab 10/11/23 metroNIDAZOLE [Flagyl*] 500 mg PO TID 7 Days #21 tab 10/11/23 - Past Medical/Surgical History Diabetic: Yes -: Diabetes type [id number] -: HTN -: neuropathy -: pneumonia -: CKD -: Hyperlipidemia -: Cholecystectomy -: Appendectomy -: Hysterectomy -: Colon resection 2019 Psychosocial/ Personal History: Lives at home with family - Family History Mother -: Cancer Brother -: Cancer - Social History Smoking Status: Never smoker Alcohol use: No CD- Drugs: No Caffeine use: Yes Place of Residence: Home Review of Systems 10-point ROS is otherwise unremarkable Gastrointestinal: Abdominal Pain Physical Examination - Physical Exam General: Alert, In no apparent distress, Oriented x3 HEENT: Atraumatic, PERRLA, EOMI Neck: Supple, 2+ carotid pulse no bruit, No LAD Respiratory: Clear to auscultation bilaterally, Normal air movement Cardiovascular: Regular rate/rhythm, Normal S1 S2 Gastrointestinal: Normal bowel sounds, Tenderness (Mild left lower quadrant tenderness) Musculoskeletal: No tenderness Integumentary: No rashes Neurological: Normal speech, Normal strength at 5/5 x4 extr, Normal tone, Normal affect - Studies Laboratory Data (last 24 hrs) 12/14/23 12/14/23 14:25 14:25 WBC 21.70 H Hgb 13.9 Hct 41.7 Plt Count 236 Sodium 135 L Potassium 3.3 L BUN 33 H Creatinine 1.99 H Glucose 192 H Magnesium 1.9 Total Bilirubin 1.1 H AST 7 L ALT 26 Alkaline Phosphatase 98 Lipase 43 Assessment and Plan - Plan Assessment: Acute sigmoid diverticulitis Acute kidney injury on CKD Diabetes mellitus type [id number]-[id number]-lufoqdpdi with neuropathy Hypertension Hyperlipidemia Chronic pain Plan: Acute sigmoid diverticulitis Third episode diverticulitis last 4 months Has not been able to get a colonoscopy with recurrent episodes Continue antibiotics Cipro/Flagyl Mild left lower quadrant pain-serial abdominal exams Marked leukocytosis, no other SIRS criteria Clear liquid diet, advance as tolerated Acute kidney injury on CKD Continue gentle IV fluids Reports baseline GFR around 44 Consider nephrology consult for worsening/persistent CYNDI Diabetes mellitus type [id number]-ileilys-pzblqbazz with neuropathy ACHS Accu-Chek, sliding scale insulin Hypertension Hold irbesartan in the setting of CYNDI Hyperlipidemia Continue home medications Chronic pain Continue [place] DVT PPX: Lovenox Code status: Full Discharge Plan: Home Plan to discharge in: 72 Hours - Advance Directives Does patient have a Living Will: No Does patient have a Durable POA for Healthcare: No - Code Status/Comfort Care Code Status Assessed: Yes (Full code) Critical Care: No Time Spent Managing Pts Care (In Minutes): 70
[2023-12-14] MEDS ORDERED: NA CHLORIDE 0.9% 1,000 ML ONE (16:41)
[2023-12-14 17:23] LABS: Specific Gravity 1.017 (1.005-1.030); Urine Bacteria 20-50 /HPF (<20); Urine Bilirubin NEGATIVE (Negative); Urine Blood Negative (Negative); Urine Clarity Extremely Turbid (Clear); Urine Color Yellow (Yellow); Urine Glucose 3+ (Negative); Urine Mucus Slight /HPF (None Seen); Urine Protein 3+ (Negative); Urine RBC <5 /HPF (None Seen); Urine Urobilinogen Normal (Normal); Urine pH 5.5 (5.0-7.0)
[2023-12-14 17:45] LABS: Blood Morphology Comment NOT SEEN (NOT SEEN); Platelet Estimate ADEQ
[2023-12-14] MEDS: NA CHLORIDE 0.9% 1,000 ML IV SCH (19:00)
[2023-12-14] MEDS ORDERED: MORPHINE 2 MG/ML SYR IV PRN (19:39)
[2023-12-14] MEDS ORDERED: HYDROCODONE/APAP 10/325 TAB PO PRN (19:39)
[2023-12-14] MEDS: INSULIN REGULAR (HUMAN) 100 UNIT/ML SQ SCH (19:39)
[2023-12-14 20:42] VITALS: BMI 32.8
[2023-12-14] MEDS: CIPROFLOXACIN 400mg IV 400 MG/200 ML BAG IV SCH (21:00)
[2023-12-15] MEDS ORDERED: METRONIDAZOLE 500mg IVPB 500 MG/100 ML BAG IV ONE (01:07)
[2023-12-15] MEDS: METRONIDAZOLE 500mg IVPB 500 MG/100 ML BAG IV SCH (01:30)
[2023-12-15 04:24] LABS: Absolute Lymphocytes (CBC) 2.9 K/uL (0.7-4.9); Hematocrit 34.2 % (36.0-45.0); MCV 90.5 fL (80-100); Platelets 214 thou/uL (152-406); RBC Red Blood Cell Count 3.77 M/uL (3.86-4.86)
[2023-12-15 04:37] LABS: Albumin 2.3 g/dL (3.4-5.0); Bilirubin Total 0.9 mg/dL (0.2-1.0); Potassium 3.3 mEq/L (3.5-5.1); Protein, Total 5.5 g/dL (6.4-8.2)
--- NOTE | 2023-12-15 08:59 | P.PN ---
Date of Service: 12/15/23 Subjective: Improving pain-tolerating diet no acute events overnight ROS: 10 point ROS as noted above, otherwise negative Physical exam GEN: Alert, oriented, NAD HEENT: Normal conjunctiva, sclera anicteric CV: Regular rate and rhythm, no edema Pulm: Nonlabored respirations on room air ABD: Soft, mild LLQ tenderness, nondistended MSK: No joint tenderness Integumentary: No rashes Neuro: Normal speech, normal affect Vitals reviewed Assessment: Acute sigmoid diverticulitis Acute kidney injury on CKD Diabetes mellitus type 3bij-itteefu-rhkatzsho with neuropathy Hypertension Hyperlipidemia Chronic pain Plan: Acute sigmoid diverticulitis Third episode diverticulitis last 4 months Has not been able to get a colonoscopy with recurrent episodes Strongly advised to have outpatient colonoscopy as soon as GI is willing given recurrent episodes <2 months apart Continue antibiotics Cipro/Flagyl Mild left lower quadrant pain-some improvement Advancing diet Follow blood and urine cultures Acute kidney injury on CKD Continue gentle IV fluids Reports baseline GFR around 44 no change overnight, continue gentle IVF, repeat chemistry in AM Diabetes mellitus type 6kha-lnixovz-vsdqxuzaf with neuropathy ACHS Accu-Chek, sliding scale insulin Hypertension Hold irbesartan in the setting of CYNDI Hyperlipidemia Continue home medications Chronic pain Continue [place] DVT PPX: Lovenox Code status: Reserve Officer Spent Managing Pts Care (In Minutes): 35
[2023-12-15] MEDS: ENOXAPARIN 30 MG/0.3 ML SQ SCH (09:33)
[2023-12-15] MEDS: metroNIDAZOLE 500 MG TABLET PO SCH (16:33)
[2023-12-15 19:38] VITALS: O2SAT 96
[2023-12-15] MEDS: CIPROFLOXACIN HCL 500 MG TAB PO SCH (20:21)
[2023-12-15 21:23] VITALS: TEMP 97.7
[2023-12-16] MEDS: HYDRALAZINE HCL 20 MG/ML VIAL IV ONE (05:17)
[2023-12-16] MEDS: AMLODIPINE 5 MG TAB PO ONE (06:04)
[2023-12-16] MEDS: LEVOTHYROXINE SOD 0.05 MG TABLET PO SCH (06:05)
[2023-12-16 06:52] VITALS: BP 179/78
[2023-12-16 07:41] LABS: Albumin 2.8 g/dL (3.4-5.0); Bilirubin Total 0.7 mg/dL (0.2-1.0); Potassium 3.1 mEq/L (3.5-5.1); Protein, Total 6.5 g/dL (6.4-8.2)
[2023-12-16 07:46] LABS: Absolute Lymphocytes (CBC) 2.6 K/uL (0.7-4.9); Hematocrit 38.3 % (36.0-45.0); Lymphocytes % 22.6 % (15.3-44.8); MCV 90.8 fL (80-100); MPV 9.1 fL (7.6-11.3); Platelets 264 thou/uL (152-406); RBC Red Blood Cell Count 4.22 M/uL (3.86-4.86)
[2023-12-16] MEDS: HOME MED 1 EA UNK (Dapagliflozin Propanediol [Farxiga] 10 MG Tablet) PO SCH (09:00)
[2023-12-16] MEDS: ASPIRIN 81 MG CHEWABLE TABLET PO SCH (10:00)
[2023-12-16] MEDS: VALSARTAN 160 MG TAB PO SCH (10:00)
[2023-12-16] MEDS: CYANOCOBALAMIN 1,000 MCG TAB PO SCH (10:01)
[2023-12-16] MEDS: SODIUM BICARB 325 MG TAB PO SCH (10:01)
--- NOTE | 2023-12-16 18:22 | P.DS ---
Admission Date: 12/14/23 Discharge Date: 12/16/23 Disposition: ROUTINE DISCHARGE Discharge Condition: FAIR Reason for Admission: Acute diverticulitis Brief History of Present Illness: 78-year-old female with history of hypertension, hyperlipidemia, CKD, hypothyroidism presented to the emergency department with 1 day of left lower quadrant abdominal pain. She denied nausea/vomiting or diarrhea. She was admitted to our facility on 10/09/2023 and discharged on 10/11/2023 for diverticulitis. That was her second episode in the last 4 months at that time, she was scheduled to follow-up with GI for colonoscopy after 2 months but began having pain again so she came to the hospital. She states that she is supposed to have colonoscopy in 2 weeks. She was evaluated in the emergency department her labs are significant for leukocytosis and CYNDI. CT shows mild to moderate sigmoid diverticulitis. Patient was admitted for further management. Hospital Course: Patient was admitted to the medical floor and the following medical problems addressed: Diagnosis Acute sigmoid diverticulitis Acute kidney injury on CKD Acute cystitis without hematuria Diabetes mellitus type 6xxs-eaonumo-yiyuxetek with neuropathy Hypertension Hyperlipidemia Chronic pain Acute sigmoid diverticulitis Third episode diverticulitis last 4 months Patient treated with IV ciprofloxacin and Flagyl. She clinically improved with treatment. Patient tolerated solid diet, pain improved significant, had a bowel movements. She is discharged with oral ciprofloxacin and Flagyl. She is strongly advised to follow-up with her GI to evaluate her for colonoscopy. Acute cystitis without hematuria Urine culture: Mixed growth UA suggested the presence of UTI. Patient was complaining of dysuria despite being on ciprofloxacin. Added Bactrim on discharge to treat a UTI. Acute kidney injury on CKD Patient with baseline chronic kidney disease stage III. Serum creatinine improved slightly and likely at baseline. Diabetes mellitus type 4zzd-blapadg-vxahooshe with neuropathy Managed with insulin sliding scale as inpatient. Hypertension Held irbesartan in the setting of CYNDI and resumed on discharge. Hyperlipidemia Continued home medications Chronic pain Continued home dose [place] Vital Signs/Physical Exam: Temp Pulse Resp BP Pulse Ox 97.7 F 76 18 179/78 H 96 12/16/23 06:39 12/16/23 06:39 12/16/23 06:39 12/16/23 06:39 12/16/23 06:39 General: Alert, In no apparent distress, Oriented x3 HEENT: Mucous membr. moist/pink, Sclerae nonicteric Neck: Supple, JVD not distended Respiratory: Clear to auscultation bilaterally, Normal air movement Cardiovascular: No edema, Regular rate/rhythm, Normal S1 S2 Gastrointestinal: Normal bowel sounds, Soft and benign, Non-distended, No tenderness Musculoskeletal: No swelling Integumentary: No rashes, No cyanosis Neurological: Normal strength at 5/5 x4 extr Laboratory Data at Discharge: WBC 11.70 thou/uL (4.3-10.9) H 12/16/23 07:07 Hgb 12.7 g/dL (12.0-15.0) D 12/16/23 07:07 Hct 38.3 % (36.0-45.0) 12/16/23 07:07 Plt Count 264 thou/uL (152-406) 12/16/23 07:07 Sodium 140 mEq/L (136-145) 12/16/23 07:07 Potassium 3.1 mEq/L (3.5-5.1) L 12/16/23 07:07 BUN 29 mg/dL (7-18) H 12/16/23 07:07 Creatinine 1.71 mg/dL (0.55-1.02) H 12/16/23 07:07 Glucose 186 mg/dL (74-106) H 12/16/23 07:07 Magnesium 1.9 mg/dL (1.6-2.4) 12/14/23 14:25 Total Bilirubin 0.7 mg/dL (0.2-1.0) 12/16/23 07:07 AST 7 U/L (15-37) L 12/16/23 07:07 ALT 19 U/L (13-56) 12/16/23 07:07 Alkaline Phosphatase 86 U/L (45-117) 12/16/23 07:07 Lipase 43 U/L (13-75) 12/14/23 14:25 Home Medications: Dapagliflozin Propanediol [Farxiga] 1 tab PO DAILY 10/09/23 Donepezil HCl 10 mg PO BEDTIME 10/09/23 Duloxetine HCl 60 mg PO BEDTIME 10/09/23 Hydrocodone/Acetaminophen [Hydrocodone-Acetamin 10-325 mg] 1 each PO BEDTIME 10/09/23 Irbesartan 300 mg PO DAILY 10/09/23 Levothyroxine [Synthroid*] 50 mcg PO [id number] 10/09/23 Pregabalin [Lyrica] 200 mg PO BEDTIME 10/09/23 Rosuvastatin Calcium 20 mg PO BEDTIME 10/09/23 Sodium Bicarbonate 650 tab PO BID 10/09/23 Amlodipine [Norvasc*] 5 mg PO BEDTIME 12/15/23 Aspirin Chewable [Aspirin Chewable*] 81 mg PO DAILY 12/15/23 Cholecalciferol (Vitamin D3) [Vitamin D 1000 Iu Tab*] 4,000 unit PO BEDTIME 12/15/23 Cyanocobalamin (Vitamin B-12) [Vitamin B12] 1,000 mcg PO DAILY 12/15/23 Melatonin 5 mg PO BEDTIME 12/15/23 Torsemide [Demadex*] 20 mg PO DAILY 12/15/23 Ciprofloxacin HCl [Cipro] 500 mg PO BID #28 tab 12/16/23 Sulfamethoxazole/Trimethoprim [Bactrim Ds Tablet] 1 each PO BID #10 tab 12/16/23 metroNIDAZOLE [Flagyl*] 500 mg PO Q8H #42 tab 12/16/23 New Medications: Sulfamethoxazole/Trimethoprim [Bactrim Ds Tablet] 1 each PO BID #10 tab Ciprofloxacin HCl [Cipro] 500 mg PO BID #28 tab metroNIDAZOLE [Flagyl*] 500 mg PO Q8H #42 tab Diet: AHA Activity: Fall precautions Followup: LALO MAY [Primary Care Provider] - Time spent managing pt's care (in minutes): 32
[2023-12-16] MEDS ORDERED: PREGABALIN 50 MG CAP PO SCH (21:00)
[2023-12-16] MEDS ORDERED: DULOXETINE 30 MG CAP PO SCH (21:00)
[2023-12-16] MEDS ORDERED: MELATONIN 5 MG TABLET PO SCH (21:00)
[2023-12-16] MEDS ORDERED: HYDROCODONE/APAP 10/325 TAB PO SCH (21:00)
[2023-12-16] MEDS ORDERED: DONEPEZIL HCL 5 MG TAB PO SCH (21:00)
[2023-12-16] MEDS ORDERED: VITAMIN D 1000 UNIT TAB PO SCH (21:00)
[2023-12-16] MEDS ORDERED: ROSUVASTATIN 10 MG TAB PO SCH (21:00)
[2023-12-16] MEDS ORDERED: AMLODIPINE 5 MG TAB PO SCH (21:00)
== END 2023-12-16 12:43 | disposition home or self-care (01) | DRG 392 ==
LOC: ER 13:16 → ERHOLD 16:04 → 2ND 12-15 04:33
PROVIDERS: ADMIT Hospitalist; ATTEND Internal Medicine
DX: K57.32 Diverticulitis of large intestine without perforation or abscess without bleeding (principal); N17.9 Acute kidney failure, unspecified; N30.00 Acute cystitis without hematuria; I12.9 Hypertensive chronic kidney disease with stage 1 through stage 4 chronic kidney disease, or unspecified chronic kidney disease; N18.30 Chronic kidney disease, stage 3 unspecified; E11.22 Type 2 diabetes mellitus with diabetic chronic kidney disease; E11.40 Type 2 diabetes mellitus with diabetic neuropathy, unspecified; E78.5 Hyperlipidemia, unspecified; E03.9 Hypothyroidism, unspecified; G89.29 Other chronic pain; Z79.82 Long term (current) use of aspirin; Z90.49 Acquired absence of other specified parts of digestive tract; Z90.711 Acquired absence of uterus with remaining cervical stump; Z79.890 Hormone replacement therapy; Z79.899 Other long term (current) drug therapy
CPT/HCPCS: 36415; 74176; 80053; 81001; 82947; 83690; 83735; 85025; 87040; 87086; 87088; J0360; J0744; J1650; J7030